=== PATIENT | male | born 1995 | race Caucasian/White ===

== ENCOUNTER 2020-06-11 10:40 | Emergency (ER) | payer OTHER, MEDICAID ==
[~2020-06-11] VITALS: Ht 180.3 cm; Wt 99.8 kg
[~2020-06-11 10:40] MED LIST: IBUPROFEN 800800 MG PO; NOHOMEMEDICATIONS; NORCO 5-325 TA1 EACH PO; VICODIN 5-5001 EACH PO
[2020-06-11 11:58] LABS: CALCIUM 8.5 mg/dL (8.5-10.1); CREATININE 1.4 mg/dL (0.6-1.3); POTASSIUM 3.8 mmol/L (3.5-5.1)
[2020-06-11 12:01] LABS: URIC ACID* 8.3 mg/dL (2.6-7.2)
[2020-06-11] MEDS ORDERED: IBUPROFEN 800800 M1 PO (12:05)
[2020-06-11] MEDS ORDERED: NORCO 5-325 TA1 EAC2 PO (12:05)
[2020-06-11 12:27] VITALS: BP 146/73
== END 2020-06-11 12:28 | disposition home or self-care (01) ==
LOC: M.ERS 10:40
PROVIDERS: Emergency Medicine Emergency Medical Services
DX: M10.071 Idiopathic gout, right ankle and foot (principal); E78.00 Pure hypercholesterolemia, unspecified; F17.210 Nicotine dependence, cigarettes, uncomplicated